=== PATIENT | female | born 1960 | race African-American/Black ===

== ENCOUNTER 2022-05-24 08:38 | Outpatient (CLI) | payer OTHER | END 2022-05-24 08:39 | disposition home or self-care (01) | LOC: CSHLAB 08:38 | PROVIDERS: ATTEND Internal Medicine Gastroenterology | DX: Z20.822 Contact with and (suspected) exposure to COVID-19 (principal); K63.5 Polyp of colon | CPT/HCPCS: 87811 ==

== ENCOUNTER 2022-05-27 06:34 | Day surgery (SDC) | payer OTHER ==
[2022-05-25 14:38] VITALS: BMI 31.6
[2022-05-27] MEDS ORDERED: PROPOFOL 60 ML ONE (07:14)
[2022-05-27] MEDS ORDERED: Lidocaine 2% MPF 10 ML AMP (For Epidural Use) ONE (07:14)
[2022-05-27] MEDS ORDERED: Lidocaine 1% MPF 2 ML VIAL ONE (07:49)
[2022-05-27] MEDS ORDERED: PROPOFOL 20 ML ONE (09:29)
== END 2022-05-27 11:00 | disposition home or self-care (01) ==
LOC: CSHSDC 06:34
PROVIDERS: ATTEND Internal Medicine Gastroenterology
PROC: 0DBP8ZZ Excision of Rectum, Via Natural or Artificial Opening Endoscopic (ICD-10-PCS; principal; 2022-05-27)
PROC: 0DBN8ZZ Excision of Sigmoid Colon, Via Natural or Artificial Opening Endoscopic (ICD-10-PCS; principal; 2022-05-27)
DX: D12.5 Benign neoplasm of sigmoid colon (principal); D17.79 Benign lipomatous neoplasm of other sites; K57.30 Diverticulosis of large intestine without perforation or abscess without bleeding; K64.9 Unspecified hemorrhoids; R15.9 Full incontinence of feces; K59.00 Constipation, unspecified; Z20.822 Contact with and (suspected) exposure to COVID-19; E11.9 Type 2 diabetes mellitus without complications; I10 Essential (primary) hypertension; J44.9 Chronic obstructive pulmonary disease, unspecified; E78.5 Hyperlipidemia, unspecified; Z87.891 Personal history of nicotine dependence; Z88.8 Allergy status to other drugs, medicaments and biological substances
CPT/HCPCS: 36416; 88305; J1610; J2704